=== PATIENT | female | born 1975 | race Caucasian/White ===

== ENCOUNTER → 2017-12-10 | Day surgery (SDC) | payer OTHER ==
[~2017-12-10] MED LIST: FENTANYL CITRATE/PF 100MCG/2 ML INJ ONE; FLOMAX0.4 MG PO; MIDAZOLAM HCL 2 MG/2 ML VIAL ONE; PROPOFOL IV EMULSION 10 MG/ML 50 ML VIAL ONE; PROPRANOLOL HCL10 MG PO; ULTRAM50 MG PO; ZANTAC150 MG PO
[2017-12-10 13:43] LABS: WBC,FECAL (FECAL LACTOFERRIN) NEGATIVE (NEGATIVE)
--- NOTE | 2017-12-10 14:38 | Operative Report ---
DATE OF PROCEDURE: December 10, 2017 REFERRING PHYSICIAN: Dr. Arturo Wetzel PROCEDURES PERFORMED 1. Esophagogastroduodenoscopy with biopsies. 2. Colonoscopy with polypectomy and biopsies. INDICATIONS FOR EGD: Heartburn, indigestion, nausea, "bloating." INDICATIONS FOR COLONOSCOPY: Lower abdominal pain, alternating bouts of constipation and diarrhea. MEDICATION: Patient was done under MAC. Please see anesthesiologist's note. PROCEDURE: With the patient in the left lateral decubitus position, the flexible fiberoptic Olympus gastroscope was introduced into the esophagus under direct visualization without any difficulty. There was some patchy erythema noted in the distal esophagus. The scope was then advanced with ease into the stomach, traversing a small sliding hiatal hernia. Mucosa overlying the antrum and the body revealed some patchy areas of erythema and low-grade edema, and biopsies were obtained and sent to stain for H. pylori. Hyperplastic-appearing polyps were noted in the body and the fundus, and some were partially excised with cold biopsy forceps. Pylorus appeared to be of normal contour and shape. It was intubated with ease, and the scope was advanced all the way to the 2nd portion of the duodenum. Biopsies were obtained from the proximal 2nd portion to rule out sprue considering the patient's history of diarrhea. The mucosa overlying the duodenal bulb appeared to be within normal limits. The scope was then withdrawn back into the stomach and retroflexed, and the mucosa overlying the fundus and the cardia grossly appeared to be within normal limits. The scope was then straightened out. The stomach was decompressed. The scope was subsequently withdrawn. Patient tolerated the procedure well. IMPRESSION 1. Distal esophagitis, mild. 2. Small sliding hiatal hernia. 3. Gastritis, biopsied. Biopsies sent to stain for H. pylori. 4. Gastric polyps, some partially excised with cold biopsy forceps. 5. Rule out sprue. PLAN: Follow up histology. Initiate Protonix 40 mg 1 p.o. q.a.m. a.c. The patient was then turned around. After adequate lubrication of the anal canal, a flexible fiberoptic Olympus colonoscope was inserted into the rectum with ease and advanced all the way to the cecum. The ileocecal valve was intubated, and the scope was advanced into the terminal ileum. Biopsies were obtained. The scope was then withdrawn back into the colon. It was then withdrawn slowly. Mucosa overlying the cecum, ascending and transverse colon appeared to be within normal limits. One polyp was snared from the descending colon. Some mild patchy inflammatory changes were noted in the left colon. Multiple random biopsies were obtained. The scope was then retroflexed into the distal rectum, and the area around the dentate line appeared to be within normal limits. The scope was then straightened out. It was subsequently withdrawn after securing an adequate stool specimen that was sent for the appropriate stool studies. Patient tolerated the procedure well. IMPRESSION 1. Descending colon polyp, snared. 2. Mild, patchy, left-sided colitis. PLAN: Follow up histology. Follow up stool studies. Initiate Flagyl 500 mg 1 p.o. q.i.d. x14 days, Bentyl 10 mg 1 p.o. t.i.d., and VSL #3 DS 1 p.o. b.i.d. Patient might benefit from a followup colonoscopy in 3 to 5 years. Job#: [id number] cc:ARTURO WETZEL MD
[2017-12-11 13:27] LABS: C DIFFICILE TOXIN A&B AMP PROB NEGATIVE (NEGATIVE)
== END | disposition home or self-care (01) ==
LOC: OR 09:29
PROVIDERS: ATTEND Internal Medicine Gastroenterology
DX: K51.50 Left sided colitis without complications (principal); K63.5 Polyp of colon; K31.7 Polyp of stomach and duodenum; K29.70 Gastritis, unspecified, without bleeding; K59.00 Constipation, unspecified; K21.9 Gastro-esophageal reflux disease without esophagitis; K20.9 Esophagitis, unspecified; K44.9 Diaphragmatic hernia without obstruction or gangrene; R03.0 Elevated blood-pressure reading, without diagnosis of hypertension; F41.9 Anxiety disorder, unspecified; Z68.35 Body mass index [BMI] 35.0-35.9, adult; Z87.442 Personal history of urinary calculi; Z80.0 Family history of malignant neoplasm of digestive organs
CPT/HCPCS: 43239; 45385; 83630; 83993; 87045; 87177; 87328; 87493; J2250; 45378; 45380